=== PATIENT | female | born 1950 | race Hispanic/Latino ===

== ENCOUNTER → 2024-02-09 | Day surgery (SDC) | payer MEDICARE ==
[2024-02-07 08:10] LABS: BASOPHILS % 0.3 % (0.0-1.0); EOSINOPHILS # (AUTO) 0.2 (0.0-0.4); EOSINOPHILS % 2.8 % (0.0-6.0); HEMATOCRIT 31.8 % (34.2-44.1); HEMOGLOBIN 9.9 g/dL (12.0-16.0); LYMPHOCYTES # (AUTO) 1.9 (1.0-3.2); LYMPHOCYTES % 24.2 % (18.0-39.1); MEAN CORPUSCULAR HGB CONC 31.1 g/dL (31-35); MONOCYTES # (AUTO) 0.6 (0.2-0.8); MONOCYTES % 7.3 % (4.4-11.3); NEUTROPHILS # (AUTO) 5.2 (2.1-6.9); NEUTROPHILS % 65.1 % (38.7-80.0); PLATELET COUNT 239 x10e3/uL (140-360); RED BLOOD COUNT 4.13 x10e6/uL (3.6-5.1); RED CELL DISTRIBUTION WIDTH 16.3 % (11.7-14.4)
[~2024-02-09] MED LIST: ALENDRONATE SOD70 MG PO; AMLODIPINE BESYL5 MG PO; ASPIRIN81 MG PO; CALCIUM ACETAT667 MG PO; COMBIGAN EYE DRO5 ML OP; DORZOLAMIDE HCL10 ML OP; DORZOLAMIDE-TIM10 ML OP; FENTANYL CITRATE/PF 100MCG/2 ML INJ ONE; HUMALOG SC; LACTATED RINGER'S 1,000 ML BAG ONE; LACTATED RINGER'S 1,000 ML ONE; LIDOCAINE HCL 2% LOCAL INJ 5 ML SDV VIAL INJ ONE; LIPITOR10 MG PO; LOSARTAN POTAS100 MG PO; METFORMIN HCL500 MG PO; METOPROLOL SUCC50 MG PO; NATEGLINIDE120 MG PO; OMEGA 3 1,0001 EACH PO; PANTOPRAZOLE SO40 MG PO; PROPOFOL IV EMULSION 10 MG/ML 20 ML VIAL ONE; ROCKLATAN 0.022.5 ML OP; VIT B12 PO; VIT D3 PO
[2024-02-09 11:30] VITALS: BP 106/76; PULSE 73; RESP 16; O2SAT 94
[2024-02-09 11:50] LABS: % IRON SATURATION 10 % (15-50); IRON 47 ug/dL (50-170); TOTAL IRON BINDING CAPACITY 469 ug/dL (261-478); TRANSFERRIN 335 mg/dL (180-382)
[2024-02-09 12:24] LABS: FOLATE 9.2 ng/mL (7.0-15.4)
[2024-02-15 08:14] LABS: ENDOMYSIAL ANTIBODIES, IGA Negative (Negative)
[2024-02-15 09:48] LABS: IMMUNOGLOBULIN A 454 mg/dL (64-422); TISSUE TRANSGLUTAMINASE IGA AB <2 U/mL (0-3)
== END | disposition home or self-care (01) ==
LOC: OR 07:30
PROVIDERS: ATTEND Internal Medicine Gastroenterology
DX: D64.9 Anemia, unspecified (principal); D12.4 Benign neoplasm of descending colon; D13.2 Benign neoplasm of duodenum; K31.7 Polyp of stomach and duodenum; K29.70 Gastritis, unspecified, without bleeding; K20.90 Esophagitis, unspecified without bleeding; K64.8 Other hemorrhoids; I10 Essential (primary) hypertension; E11.9 Type 2 diabetes mellitus without complications; K21.9 Gastro-esophageal reflux disease without esophagitis; N39.0 Urinary tract infection, site not specified; Z86.16 Personal history of COVID-19; M06.9 Rheumatoid arthritis, unspecified; Z88.6 Allergy status to analgesic agent; Z88.8 Allergy status to other drugs, medicaments and biological substances; Z79.82 Long term (current) use of aspirin; Z79.84 Long term (current) use of oral hypoglycemic drugs; Z79.4 Long term (current) use of insulin; Z79.899 Other long term (current) drug therapy; Z80.0 Family history of malignant neoplasm of digestive organs
CPT/HCPCS: 36415 ×2; 43239; 45385; 82607; 82746; 82784; 82948; 83516; 83540; 84466; 85025; 86256; 93005; C9113; J2001; J2704; J3010; J7121; 45378